=== PATIENT | female | born 1955 | race Caucasian/White ===

== ENCOUNTER 2024-01-03 13:37 | Inpatient (IN) | payer OTHER ==
[~2024-01-03] VITALS: Ht 162.6 cm; Wt 61.2 kg
[2024-01-03 14:00] VITALS: BP 119/59; PULSE 94; RESP 18; TEMP 98.1; O2SAT 94
[2024-01-03] MEDS: HYDROcodone/APAP 5/325 MG 1 TAB TAB PO ONE (14:41)
[2024-01-03] MEDS: IBUPROFEN 600 MG TAB PO ONE (14:42)
[2024-01-03 15:26] LABS: BASOPHILS # (AUTO) 0.1 K/uL (0.00-0.22); BASOPHILS % (AUTO) 0.4 % (0.0-2.0); EOSINOPHILS % (AUTO) 0.1 % (0.0-4.0); HEMATOCRIT 41.3 % (36-48); HEMOGLOBIN 13.5 g/dL (12.0-16.0); LYMPHOCYTES # (AUTO) 1.6 K/uL (2.5-16.5); LYMPHOCYTES % (AUTO) 7.9 % (20.5-51.1); MEAN CORPUSCULAR HEMOGLOBIN 29 pg (27-31); MEAN CORPUSCULAR HGB CONC 33 g/dL (33-37); MONOCYTES # (AUTO) 0.8 K/uL (0.8-1.0); MONOCYTES % (AUTO) 4.1 % (1.7-9.3); NEUTROPHILS # (AUTO) 17.3 K/uL (1.8-7.7); NEUTROPHILS % (AUTO) 87.5 % (42.2-75.2); PLATELET COUNT (AUTO) 281 K/uL (140-450); RED BLOOD CELL COUNT(AUTO) 4.69 MIL/uL (4.20-5.40); RED CELL DISTRIBUTION WIDTH 15.3 % (11.6-13.7); WHITE BLOOD COUNT (AUTO) 19.7 K/uL (4.8-10.8)
[2024-01-03 15:34] LABS: ANION GAP 13.7 (8-16); CALCIUM 9.4 mg/dL (8.5-10.1); CARBON DIOXIDE 26.5 mmol/L (21-32); CREATININE 0.7 mg/dL (0.6-1.3); POTASSIUM 4.2 mmol/L (3.5-5.1)
[2024-01-03 15:46] LABS: INR 0.94 (0.8-1.2); PARTIAL THROMBOPLASTIN TIME 21.4 secs (22-35.6); PROTHROMBIN TIME 9.9 secs (10.8-13.4)
[2024-01-03 16:15] LABS: BILIRUBIN,URINE NEGATIVE (NEGATIVE); BLOOD, URINE NEGATIVE (NEGATIVE); COLOR,URINE YELLOW (YELLOW); LEUKOCYTE ESTERASE ,URINE TRACE (NEGATIVE); NITRITE, URINE NEGATIVE (NEGATIVE); PH,URINE 6.5 (5.0-9.0); PROTEIN,URINE NEGATIVE (NEGATIVE); UGLUCOSE NEGATIVE (NEGATIVE); UROBILINOGEN,URINE 0.2 EU/dL (0.2 - 1)
[2024-01-03 16:16] LABS: APPEARANCE,URINE HAZY (CLEAR)
[2024-01-03 16:17] LABS: BACTERIA,URINE 1+ /HPF (None Seen); MUCUS,URINE None Seen /LPF (None Seen); RBC,URINE 0 /HPF (0-5); SQUAMOUS EPITHELIAL CELL,UR 4-10 (MOD) /LPF (0-3 (FEW)); WBC,URINE 0-5 /HPF (0-5)
[2024-01-03] MEDS ORDERED: ACETAMINOPHEN 325 MG TAB PO PRN (17:15)
[2024-01-03] MEDS ORDERED: ONDANSETRON 4 MG/2 ML VIAL IV PRN (17:15)
[2024-01-03] MEDS ORDERED: MAG SULF 2000 MG/WATER PREMIX 50 ML IV PRN (17:15)
[2024-01-03] MEDS ORDERED: KCL 20 MEQ IN 100 mL PREMIX 200 ML IV PRN (17:15)
[2024-01-03] MEDS ORDERED: DOCUSATE SODIUM 100 MG GELCAP PO PRN (17:15)
[2024-01-03 17:54] LABS: LACTIC ACID 2.3 mmol/L (0.4-2.0); THYROID STIMULATING HORMONE 1.23 uIU/mL (0.34-3.74)
[2024-01-03] MEDS: NACL 0.9% 2,000 ML IV ONE (18:07)
[2024-01-03 18:36] LABS: ALBUMIN 3.3 g/dL (3.4-5.0); CALCIUM 8.4 mg/dL (8.5-10.1); CREATININE 0.7 mg/dL (0.6-1.3); TOTAL BILIRUBIN 0.7 mg/dL (0.0-1.0); TOTAL PROTEIN, SERUM 6.2 g/dL (6.4-8.2)
[2024-01-03] MEDS ORDERED: PRED20TA5 PO (19:27)
[2024-01-03] MEDS ORDERED: ALEN70TA85 PO (19:27)
[2024-01-03] MEDS ORDERED: FLUT1BLS9 PO (19:27)
[2024-01-03 19:48] VITALS: O2SAT 99
[2024-01-03 22:00] VITALS: BP 128/72; PULSE 84; RESP 18; TEMP 98.3; O2SAT 95
[2024-01-03] MEDS: NACL 0.9% 1,000 ML IV STA (22:17)
[2024-01-04 04:00] VITALS: BP 122/70; PULSE 84; RESP 18; TEMP 98.1; O2SAT 95
[2024-01-04] MEDS: MORPHINE SULFATE 2 MG/ML SYR IVP PRN (04:46)
[2024-01-04 06:03] LABS: BASOPHILS % (AUTO) 0.3 % (0.0-2.0); EOSINOPHILS # (AUTO) 0.1 K/uL (0-0.4); EOSINOPHILS % (AUTO) 1.1 % (0.0-4.0); HEMOGLOBIN 11.6 g/dL (12.0-16.0); LYMPHOCYTES # (AUTO) 2.7 K/uL (2.5-16.5); LYMPHOCYTES % (AUTO) 21.6 % (20.5-51.1); MEAN CORPUSCULAR HEMOGLOBIN 29 pg (27-31); MEAN CORPUSCULAR HGB CONC 33 g/dL (33-37); MONOCYTES # (AUTO) 1.1 K/uL (0.8-1.0); MONOCYTES % (AUTO) 8.7 % (1.7-9.3); NEUTROPHILS # (AUTO) 8.6 K/uL (1.8-7.7); NEUTROPHILS % (AUTO) 68.3 % (42.2-75.2); PLATELET COUNT (AUTO) 229 K/uL (140-450); RED BLOOD CELL COUNT(AUTO) 3.98 MIL/uL (4.20-5.40); RED CELL DISTRIBUTION WIDTH 14.9 % (11.6-13.7); WHITE BLOOD COUNT (AUTO) 12.6 K/uL (4.8-10.8)
[2024-01-04 06:16] LABS: LACTIC ACID 0.9 mmol/L (0.4-2.0)
[2024-01-04 08:00] VITALS: BP 117/61; PULSE 85; RESP 18; TEMP 98.3; O2SAT 96
[2024-01-04 08:22] LABS: ALBUMIN 2.6 g/dL (3.4-5.0); ANION GAP 11.4 (8-16); CALCIUM 7.7 mg/dL (8.5-10.1); CARBON DIOXIDE 26.5 mmol/L (21-32); CREATININE 0.5 mg/dL (0.6-1.3); MAGNESIUM 1.8 mg/dL (1.8-2.4); PHOSPHORUS 3.7 mg/dL (2.5-4.9); POTASSIUM 3.9 mmol/L (3.5-5.1); TOTAL BILIRUBIN 0.8 mg/dL (0.0-1.0)
[2024-01-04 08:34] LABS: TOTAL PROTEIN, SERUM 5.3 g/dL (6.4-8.2)
[2024-01-04] MEDS: predniSONE 10 MG TAB PO SCH (09:30)
[2024-01-04 10:03] VITALS: O2SAT 96
[2024-01-04 16:00] VITALS: BP 117/71; PULSE 97; RESP 18; TEMP 98.8; O2SAT 95
[2024-01-04] MEDS: BUPIVACAINE-MPF 0.25% 30 ML VIAL INJ ONE (16:59)
[2024-01-04] MEDS ORDERED: SEVOFLURANE 250 ML BTL INH ONE (17:00)
[2024-01-04] MEDS ORDERED: GLYCOPYRROLATE 0.2 MG/ML VIAL ONE (17:00)
[2024-01-04] MEDS: MIDAZOLAM 2 MG/2 ML VIAL ONE (17:01)
[2024-01-04] MEDS: fentaNYL citrate 0.05 MG/ML VIAL ONE (17:02)
[2024-01-04] MEDS: ONDANSETRON 4 MG/2 ML VIAL ONE (18:03)
[2024-01-04] MEDS: METOCLOPRAMIDE 10 MG/2 ML INJ VIAL ONE (18:03)
[2024-01-04] MEDS: KETOROLAC 30 MG/ML VIAL ONE (18:03)
[2024-01-04] MEDS: LIDOCAINE MPF 2% 100 MG/5 ML VIAL INJ ONE (18:03)
[2024-01-04] MEDS: PROPOFOL 200 MG/20 ML VIAL IV ONE (18:04)
[2024-01-04] MEDS: SODIUM 10 ML ONE (18:07)
[2024-01-04] MEDS: PHENYLEPHRINE 10 MG/ML VIAL ONE (18:07)
[2024-01-04] MEDS ORDERED: HYDROmorphone 1 MG/ML AMP IVP PRN (18:45)
[2024-01-04] MEDS: LACTATED RINGERS 1,000 ML IV SCH (18:45)
[2024-01-04] MEDS ORDERED: ONDANSETRON 4 MG/2 ML VIAL IVP PRN (18:45)
[2024-01-04] MEDS ORDERED: diphenhydrAMINE 50 MG/ML VIAL IVP PRN (18:45)
[2024-01-04] MEDS ORDERED: MEPERIDINE 25 MG/ML SYR IVP PRN (18:45)
[2024-01-04 20:00] VITALS: BP 100/63; PULSE 88; RESP 17; TEMP 97.5; O2SAT 92
[2024-01-04] MEDS ORDERED: SALMETEROL PO SCH (21:00)
[2024-01-04] MEDS ORDERED: FLUTICASONE PROPION PO SCH (21:00)
[2024-01-04] MEDS: FLUTICASONE PROPIONATE INH SCH (21:54)
[2024-01-04] MEDS: SALMETEROL INH SCH (21:54)
[2024-01-04] MEDS: HYDROcodone/APAP 7.5/325 MG 1 TAB PO PRN (21:55)
[2024-01-04] MEDS ORDERED: ceFAZolin 1,000 MG VIAL ONE (23:17)
[2024-01-05 04:23] VITALS: O2SAT 94
[2024-01-05 05:54] LABS: ALBUMIN 2.5 g/dL (3.4-5.0); ANION GAP 7.3 (8-16); CALCIUM 7.8 mg/dL (8.5-10.1); CARBON DIOXIDE 30.3 mmol/L (21-32); CREATININE 0.8 mg/dL (0.6-1.3); MAGNESIUM 1.9 mg/dL (1.8-2.4); PHOSPHORUS 4.3 mg/dL (2.5-4.9); POTASSIUM 3.6 mmol/L (3.5-5.1); TOTAL BILIRUBIN 0.6 mg/dL (0.0-1.0); TOTAL PROTEIN, SERUM 5.1 g/dL (6.4-8.2)
[2024-01-05 06:37] LABS: BASOPHILS # (AUTO) 0.1 K/uL (0.00-0.22); BASOPHILS % (AUTO) 0.5 % (0.0-2.0); EOSINOPHILS # (AUTO) 0.4 K/uL (0-0.4); EOSINOPHILS % (AUTO) 3.6 % (0.0-4.0); HEMATOCRIT 34.7 % (36-48); HEMOGLOBIN 11.3 g/dL (12.0-16.0); LYMPHOCYTES # (AUTO) 2.4 K/uL (2.5-16.5); LYMPHOCYTES % (AUTO) 23.4 % (20.5-51.1); MEAN CORPUSCULAR HEMOGLOBIN 29 pg (27-31); MEAN CORPUSCULAR HGB CONC 33 g/dL (33-37); MEAN CORPUSCULAR VOLUME 89.3 fL (80-94); MONOCYTES # (AUTO) 1.1 K/uL (0.8-1.0); MONOCYTES % (AUTO) 10.7 % (1.7-9.3); NEUTROPHILS # (AUTO) 6.4 K/uL (1.8-7.7); NEUTROPHILS % (AUTO) 61.8 % (42.2-75.2); PLATELET COUNT (AUTO) 226 K/uL (140-450); RED BLOOD CELL COUNT(AUTO) 3.89 MIL/uL (4.20-5.40); RED CELL DISTRIBUTION WIDTH 15.1 % (11.6-13.7); WHITE BLOOD COUNT (AUTO) 10.3 K/uL (4.8-10.8)
[2024-01-05 07:58] VITALS: O2SAT 97
[2024-01-05 08:00] VITALS: BP 97/55; PULSE 88; PULSE 91; RESP 17; RESP 18; TEMP 99; O2SAT 90; O2SAT 97
[2024-01-05 16:00] VITALS: BP 106/56; PULSE 98; RESP 18; TEMP 99.4; O2SAT 94
[2024-01-05 20:00] VITALS: BP 108/70; PULSE 104; RESP 20; TEMP 98.1; O2SAT 93
[2024-01-05 20:58] VITALS: O2SAT 93
[2024-01-06 03:49] VITALS: PULSE 90; RESP 18; O2SAT 97
[2024-01-06 04:00] VITALS: BP 102/58; PULSE 81; RESP 19; TEMP 98; O2SAT 97
[2024-01-06 05:38] LABS: BASOPHILS % (AUTO) 0.4 % (0.0-2.0); EOSINOPHILS # (AUTO) 0.3 K/uL (0-0.4); EOSINOPHILS % (AUTO) 2.9 % (0.0-4.0); HEMATOCRIT 33.4 % (36-48); HEMOGLOBIN 11.2 g/dL (12.0-16.0); LYMPHOCYTES # (AUTO) 3.1 K/uL (2.5-16.5); LYMPHOCYTES % (AUTO) 28.8 % (20.5-51.1); MEAN CORPUSCULAR HEMOGLOBIN 29 pg (27-31); MEAN CORPUSCULAR HGB CONC 33 g/dL (33-37); MEAN CORPUSCULAR VOLUME 88.2 fL (80-94); MONOCYTES # (AUTO) 0.9 K/uL (0.8-1.0); NEUTROPHILS # (AUTO) 6.5 K/uL (1.8-7.7); NEUTROPHILS % (AUTO) 59.9 % (42.2-75.2); PLATELET COUNT (AUTO) 210 K/uL (140-450); RED BLOOD CELL COUNT(AUTO) 3.79 MIL/uL (4.20-5.40); RED CELL DISTRIBUTION WIDTH 14.9 % (11.6-13.7); WHITE BLOOD COUNT (AUTO) 10.9 K/uL (4.8-10.8)
[2024-01-06 06:18] LABS: ALBUMIN 2.5 g/dL (3.4-5.0); ANION GAP 5.4 (8-16); CALCIUM 7.9 mg/dL (8.5-10.1); CARBON DIOXIDE 31.3 mmol/L (21-32); CREATININE 0.6 mg/dL (0.6-1.3); MAGNESIUM 1.9 mg/dL (1.8-2.4); PHOSPHORUS 3.1 mg/dL (2.5-4.9); POTASSIUM 3.7 mmol/L (3.5-5.1); TOTAL BILIRUBIN 0.5 mg/dL (0.0-1.0); TOTAL PROTEIN, SERUM 5.3 g/dL (6.4-8.2)
[2024-01-06 11:30] VITALS: PULSE 84; RESP 16; O2SAT 96
[2024-01-06] MEDS ORDERED: SPIRIVA INH SCH (11:35)
[2024-01-06] MEDS ORDERED: METH4TAB1 PO (12:38)
[2024-01-06] MEDS ORDERED: CEPH-588 PO (12:38)
[2024-01-06 14:39] VITALS: BP 100/56; PULSE 76; RESP 18; TEMP 97.2
[2024-01-06] MEDS: SPIRIVA RESPIMAT 2.5MCG/ACTUATION INH SCH (15:03)
== END 2024-01-06 15:15 | DRG 481 ==
LOC: MED 13:37 → MMU 16:57 → MTU 16:57
PROVIDERS: ADMIT Student in an Organized Health Care Education/Training Program; ATTEND Student in an Organized Health Care Education/Training Program
PROC: 0QS704Z Reposition Left Upper Femur with Internal Fixation Device, Open Approach (ICD-10-PCS; principal; 2024-01-04 17:00)
DX: S72.012A Unspecified intracapsular fracture of left femur, initial encounter for closed fracture (principal); E44.0 Moderate protein-calorie malnutrition; E87.20 Acidosis, unspecified; N39.0 Urinary tract infection, site not specified; R65.10 Systemic inflammatory response syndrome (SIRS) of non-infectious origin without acute organ dysfunction; S62.325A Displaced fracture of shaft of fourth metacarpal bone, left hand, initial encounter for closed fracture; J44.9 Chronic obstructive pulmonary disease, unspecified; T38.0X5A Adverse effect of glucocorticoids and synthetic analogues, initial encounter; W18.39XA Other fall on same level, initial encounter; Y93.89 Activity, other specified; Y92.89 Other specified places as the place of occurrence of the external cause; Y99.8 Other external cause status; Z68.23 Body mass index [BMI] 23.0-23.9, adult; Z79.899 Other long term (current) drug therapy
CPT/HCPCS: 36415; 71045; 72170; 72192; 73130; 73502; 73630; 80048; 80053; 81001; 83605; 83735; 83880; 84100; 84443; 84484; 85025; 85610; 85730; 87040; 87081; 87086; 87186; 93005; 96360; 96361; 97110; 97116; 97163-GP; 97530; 99285; C1713; C1769; J0690; J0696; J1885; J2001; J2250; J2270; J2405; J2704; J2765; J3010; J3490; J7060; J7512; Q0092